=== PATIENT | female | born 1935 | race Caucasian/White ===

== ENCOUNTER → 2016-08-07 | Outpatient (CLI) | payer MEDICARE ==
--- NOTE | 2016-08-13 13:58 | EM ---
24 HOUR DCG DATE OF SERVICE: AGE: 81Y SEX: F INDICATIONS: Patient did not provide a diary. Predominant rhythm is sinus with a heart ranging from 80 to 122 beats per minute. The average heart rate is about 100 beats per minute. Rare isolated PVCs and PACs were noted. Sinus rhythm and sinus tachycardia appears to be the predominant rhythm. There was no evidence of any bradyarrhythmia. FINAL IMPRESSION: Predominately sinus with sinus arrhythmia, and sinus tachycardia. No evidence of any ventricular or supraventricular ectopy was noted. There was no bradyarrhythmia. No diary was provided. This is an unremarkable 24-hour DCG with sinus tachycardia.
== END | disposition home or self-care (01) ==
LOC: RADECHMAIN 12:04
PROVIDERS: ATTEND Physician Assistant
DX: I49.8 Other specified cardiac arrhythmias (principal); R00.0 Tachycardia, unspecified
CPT/HCPCS: 93225; 93226

== ENCOUNTER 2016-10-31 12:10 | Emergency (ER) | payer MEDICARE ==
[2016-10-31] MEDS ORDERED: SODIUM CHLORIDE 0.9% 1,000 ML IV STA (12:46)
--- NOTE | 2016-10-31 12:46 | ED ---
General Adult HPI - General Chief complaint: Urogenital Stated complaint: Dehydration Time Seen by Provider: 10/31/16 12:40 Source: patient, RN notes reviewed, old records reviewed Mode of arrival: ambulatory Limitations: no limitations - History of Present Illness Initial comments: This is an 79-year-old female to the ER with abdominal pain, dysuria, suprapubic abdominal pain. Back pain. Patient has history of proctitis history of recurrent urinary tract infections and some history of urinary retention. Patient does admit to feeling feverish with chills. No modifying factors for symptoms. Increased diarrhea, no blood. Decreased urination. Decreased appetite. Mild nausea no vomiting. No fevers or family history no sick contacts. No recent change in medications - Related Data Home Medications Medication Instructions Recorded Confirmed Albuterol Sulfate [Proair Hfa] 1 - 2 puff INHALATION RT-Q6H PRN 10/31/16 Budesonide/Formoterol Fumarate 1 puff INHALATION RT-DAILY 10/31/16 10/31/16 [Symbicort 80-4.5 Mcg Inhaler] Calcium Carbonate/Vitamin D3 1 tab PO DAILY 10/31/16 10/31/16 [Calcium 500-Vit D3 200 Tablet] Ezetimibe [Zetia] 10 mg PO HS 10/31/16 10/31/16 Levothyroxine Sodium [Synthroid] 25 mcg PO DAILY 10/31/16 10/31/16 Losartan/Hydrochlorothiazide 1 tab PO DAILY 10/31/16 10/31/16 [Losartan-Hctz 100-12.5 mg Tab] Multivitamins, Thera [Multivitamin 1 tab PO DAILY 10/31/16 10/31/16 (formulary)] Previous Rx's Medication Instructions Recorded Dicyclomine [Bentyl] 10 mg PO TID #30 capsule 10/31/16 HYDROcodone/APAP 5-325MG [[place] 1 tab PO Q6HR PRN #20 tab 10/31/16 5-325] Naproxen [Naprosyn] 250 mg PO BID #30 tab 10/31/16 Ondansetron [Zofran] 4 mg PO Q8HR PRN #30 tab 10/31/16 Allergies Allergy/AdvReac Type Severity Reaction Status Date / Time hydromorphone [From Dilaudid] AdvReac Nausea & Verified 10/31/16 14:00 Vomiting Review of Systems ROS Statement: Those systems with pertinent positive or pertinent negative responses have been documented in the HPI. ROS Other: All systems not noted in ROS Statement are negative. Past Medical History Additional Past Medical History / Comment(s): chronic proctitis. chronic diarrhea History of Any Multi-Drug Resistant Organisms: None Reported Past Surgical History: Hysterectomy, Orthopedic Surgery, Tubal Ligation Additional Past Surgical History / Comment(s): cataract Past Psychological History: No Psychological Hx Reported Smoking Status: Never smoker Past Alcohol Use History: None Reported Past Drug Use History: None Reported General Exam Limitations: no limitations General appearance: alert, in no apparent distress Head exam: Present: atraumatic, normocephalic, normal inspection Eye exam: Present: normal appearance, PERRL, EOMI. Absent: scleral icterus, conjunctival injection, periorbital swelling ENT exam: Present: normal exam, mucous membranes moist Neck exam: Present: normal inspection. Absent: tenderness, meningismus, lymphadenopathy Respiratory exam: Present: normal lung sounds bilaterally. Absent: respiratory distress, wheezes, rales, rhonchi, stridor Cardiovascular Exam: Present: regular rate, normal rhythm, normal heart sounds. Absent: systolic murmur, diastolic murmur, rubs, gallop, clicks GI/Abdominal exam: Present: soft, normal bowel sounds. Absent: distended, tenderness, guarding, rebound, rigid Extremities exam: Present: normal inspection, full ROM, normal capillary refill. Absent: tenderness, pedal edema, joint swelling, calf tenderness Back exam: Present: normal inspection Neurological exam: Present: alert, oriented X3, CN II-XII intact Psychiatric exam: Present: normal affect, normal mood Skin exam: Present: warm, dry, intact, normal color. Absent: rash Course Vital Signs 10/31/16 10/31/16 10/31/16 12:31 13:21 13:51 Temperature 100 F H 100.6 F H Pulse Rate 104 H 104 H 103 H Respiratory 18 16 16 Rate Blood Pressure 128/59 131/60 127/60 O2 Sat by Pulse 98 99 93 L Oximetry 10/31/16 10/31/16 14:20 15:00 Temperature 100.0 F H 98.8 F Pulse Rate 99 92 Respiratory 16 16 Rate Blood Pressure 116/56 O2 Sat by Pulse 100 Oximetry - Reevaluation(s) Reevaluation #1: 10/31/16 16:33 Patient has great improvement in symptoms with fever control, IV fluid resuscitation, denies nausea, does have appetite EKG Findings - EKG Comments: EKG Findings:: EKG shows rate of 101, IN 124, QRS 80, QTC 417 sinus tach Medical Decision Making - Medical Decision Making HEENT female with rectal pain history of proctitis, patient is inflammation extending up to descending colon, noted for inpatient admission, patient tolerating oral intake, we'll give pain control follow-up with specialist as directed - Lab Data Result diagrams: 10/31/16 13:10 10/31/16 13:10 Lab Results 10/31/16 10/31/16 10/31/16 Range/Units 12:45 13:10 13:10 WBC 10.7 H (3.8-10.6) k/uL RBC 4.37 (3.80-5.40) m/uL Hgb 11.8 (11.4-16.0) gm/dL Hct 36.7 (34.0-46.0) % MCV 84.1 (80.0-100.0) fL MCH 27.0 (25.0-35.0) pg MCHC 32.1 (31.0-37.0) g/dL RDW 13.4 (11.5-15.5) % Plt Count 446 (150-450) k/uL Neutrophils % 76 % Lymphocytes % 17 % Monocytes % 4 % Eosinophils % 1 % Basophils % 0 % Neutrophils # 8.2 H (1.3-7.7) k/uL Lymphocytes # 1.8 (1.0-4.8) k/uL Monocytes # 0.4 (0-1.0) k/uL Eosinophils # 0.2 (0-0.7) k/uL Basophils # 0.0 (0-0.2) k/uL PT (9.0-12.0) sec INR (<1.2) APTT (22.0-30.0) sec Sodium (137-145) mmol/L Potassium (3.5-5.1) mmol/L Chloride (98-107) mmol/L Carbon Dioxide (22-30) mmol/L Anion Gap mmol/L BUN (7-17) mg/dL Creatinine (0.52-1.04) mg/dL Est GFR (MDRD) Af Amer (>60 ml/min/1.73 sqM) Est GFR (MDRD) Non-Af (>60 ml/min/1.73 sqM) Glucose (74-99) mg/dL Calcium (8.4-10.2) mg/dL Phosphorus (2.5-4.5) mg/dL Magnesium (1.6-2.3) mg/dL Total Bilirubin (0.2-1.3) mg/dL AST (14-36) U/L ALT (9-52) U/L Alkaline Phosphatase (38-126) U/L Total Creatine Kinase 26 L (30-135) U/L CK-MB (CK-2) 0.4 (0.0-2.4) ng/mL CK-MB (CK-2) Rel Index 1.5 Troponin I <0.012 (0.000-0.034) ng/mL Total Protein (6.3-8.2) g/dL Albumin (3.5-5.0) g/dL Urine Color Yellow Urine Appearance Clear (Clear) Urine pH 6.5 (5.0-8.0) Ur Specific [place] 1.009 (1.001-1.035) Urine Protein Trace H (Negative) Urine Glucose (UA) Negative (Negative) Urine Ketones Negative (Negative) Urine Blood Trace H (Negative) Urine Nitrite Negative (Negative) Urine Bilirubin Negative (Negative) Urine Urobilinogen <2.0 (<2.0) mg/dL Ur Leukocyte Esterase Moderate H (Negative) Urine RBC 1 (0-5) /hpf Urine WBC 2 (0-5) /hpf Ur Squamous Epith Cells 6 H (0-4) /hpf Urine Bacteria Rare H (None) /hpf Urine Mucus Rare H (None) /hpf 10/31/16 10/31/16 Range/Units 13:10 13:10 WBC (3.8-10.6) k/uL RBC (3.80-5.40) m/uL Hgb (11.4-16.0) gm/dL Hct (34.0-46.0) % MCV (80.0-100.0) fL MCH (25.0-35.0) pg MCHC (31.0-37.0) g/dL RDW (11.5-15.5) % Plt Count (150-450) k/uL Neutrophils % % Lymphocytes % % Monocytes % % Eosinophils % % Basophils % % Neutrophils # (1.3-7.7) k/uL Lymphocytes # (1.0-4.8) k/uL Monocytes # (0-1.0) k/uL Eosinophils # (0-0.7) k/uL Basophils # (0-0.2) k/uL PT 11.4 (9.0-12.0) sec INR 1.1 (<1.2) APTT 24.5 (22.0-30.0) sec Sodium 132 L (137-145) mmol/L Potassium 4.3 (3.5-5.1) mmol/L Chloride 97 L (98-107) mmol/L Carbon Dioxide 27 (22-30) mmol/L Anion Gap 8 mmol/L BUN 19 H (7-17) mg/dL Creatinine 0.89 (0.52-1.04) mg/dL Est GFR (MDRD) Af Amer >60 (>60 ml/min/1.73 sqM) Est GFR (MDRD) Non-Af >60 (>60 ml/min/1.73 sqM) Glucose 91 (74-99) mg/dL Calcium 8.8 (8.4-10.2) mg/dL Phosphorus 3.0 (2.5-4.5) mg/dL Magnesium 1.5 L (1.6-2.3) mg/dL Total Bilirubin 0.5 (0.2-1.3) mg/dL AST 13 L (14-36) U/L ALT 30 (9-52) U/L Alkaline Phosphatase 109 (38-126) U/L Total Creatine Kinase (30-135) U/L CK-MB (CK-2) (0.0-2.4) ng/mL CK-MB (CK-2) Rel Index Troponin I (0.000-0.034) ng/mL Total Protein 5.9 L (6.3-8.2) g/dL Albumin 2.7 L (3.5-5.0) g/dL Urine Color Urine Appearance (Clear) Urine pH (5.0-8.0) Ur Specific [place] (1.001-1.035) Urine Protein (Negative) Urine Glucose (UA) (Negative) Urine Ketones (Negative) Urine Blood (Negative) Urine Nitrite (Negative) Urine Bilirubin (Negative) Urine Urobilinogen (<2.0) mg/dL Ur Leukocyte Esterase (Negative) Urine RBC (0-5) /hpf Urine WBC (0-5) /hpf Ur Squamous Epith Cells (0-4) /hpf Urine Bacteria (None) /hpf Urine Mucus (None) /hpf - Radiology Data Radiology results: report reviewed (CT and pelvis that showed colitis to rectum up to ascending and descending colon), image reviewed Disposition Clinical Impression: Colitis Disposition: HOME SELF-CARE Condition: Good Instructions: Colitis (ED) Prescriptions: Dicyclomine [Bentyl] 10 mg PO TID #30 capsule HYDROcodone/APAP 5-325MG [[place] 5-325] 1 tab PO Q6HR PRN #20 tab PRN Reason: Pain Naproxen [Naprosyn] 250 mg PO BID #30 tab Ondansetron [Zofran] 4 mg PO Q8HR PRN #30 tab PRN Reason: Nausea Referrals: Jacky Maynard DO [Primary Care Provider] - 1-2 days
[2016-10-31] MEDS ORDERED: ACETAMINOPHEN IV (For NPO) 1,000 MG in EMPTY BAG 1 BAG IVPB STA (12:56)
[2016-10-31 13:23] VITALS: RESP 16
[2016-10-31 13:27] LABS: Basophils % (A) 0 %; CH 26.8; Eosinophils # (A) 0.2 k/uL (0-0.7); Eosinophils % (A) 1 %; HCT 36.7 % (34.0-46.0); HDW 2.47; HGB 11.8 gm/dL (11.4-16.0); Luc # (Auto) 0.18; Luc % (Auto) 2; Lymphocytes # (A) 1.8 k/uL (1.0-4.8); Lymphocytes % (A) 17 %; MCHC 32.1 g/dL (31.0-37.0); MCV 84.1 fL (80.0-100.0); Mean Platelet Volume 6.7; Monocytes # (A) 0.4 k/uL (0-1.0); Monocytes % (A) 4 %; Neutrophils # (A) 8.2 k/uL (1.3-7.7); Neutrophils % (A) 76 %; RBC 4.37 m/uL (3.80-5.40); RDW 13.4 % (11.5-15.5); WBC 10.7 k/uL (3.8-10.6)
[2016-10-31 13:37] LABS: ALT 30 U/L (9-52); AST 13 U/L (14-36); Alkaline Phosphatase 109 U/L (38-126); Anion Gap 8 mmol/L; Blood Urea Nitrogen 19 mg/dL (7-17); Calcium 8.8 mg/dL (8.4-10.2); Carbon Dioxide 27 mmol/L (22-30); Chloride 97 mmol/L (98-107); Glucose 91 mg/dL (74-99); INR 1.1 (<1.2); Magnesium 1.5 mg/dL (1.6-2.3); Non-African American GFR(MDRD) >60 (>60 ml/min/1.73 sqM); Partial Thromboplastin Time 24.5 sec (22.0-30.0); Potassium 4.3 mmol/L (3.5-5.1); Prothrombin Time 11.4 sec (9.0-12.0); Sodium 132 mmol/L (137-145); Total Bilirubin 0.5 mg/dL (0.2-1.3); Total Protein 5.9 g/dL (6.3-8.2)
[2016-10-31 13:41] LABS: Appearance,Urine Clear (Clear); Bacteria,Urine Rare /hpf; Bilirubin,Urine Negative (Negative); Glucose,Urine (UA) Negative (Negative); Ketones,Urine Negative (Negative); Leukocyte Esterase,Urine Moderate (Negative); Mucus,Urine Rare /hpf; Nitrite,Urine Negative (Negative); PH, Urine 6.5 (5.0-8.0); Particle Count 2704; Protein,Urine Trace (Negative); RBC,Urine 1 /hpf (0-5); Specific Gravity,Urine 1.009 (1.001-1.035); Squamous Epithelial Cell,Urine 6 /hpf (0-4); UA Billing (MACRO vs. MICRO) MICRO; Urobilinogen,Urine <2.0 mg/dL (<2.0); WBC,Urine 2 /hpf (0-5)
[2016-10-31 13:46] LABS: Creatine Kinase 26 U/L (30-135)
[2016-10-31 13:59] LABS: Creatine Kinase MB 0.4 ng/mL (0.0-2.4); Troponin I <0.012 ng/mL (0.000-0.034)
[2016-10-31] MEDS ORDERED: RX INFO: IV CONTRAST WAS GIVEN 1 EACH MISC MISCELLANE PRN (14:18)
[2016-10-31] MEDS ORDERED: KETOROLAC 30 MG/ML 1 ML VIAL IVP STA (14:18)
[2016-10-31] MEDS ORDERED: AMPICILLIN-SULBACTAM 3 GM in SODIUM CHLORIDE 0.9% 100 ML IVPB STA (14:19)
[2016-10-31 15:22] VITALS: PULSE 92
--- NOTE | 2016-10-31 16:18 | CT ---
EXAMINATION TYPE: CT abdomen pelvis w con DATE OF EXAM: 10/31/2016 COMPARISON: NONE HISTORY: 81-year-old female with generalized pain with history of proctitis per patient TECHNIQUE: Contiguous axial scanning of the abdomen and pelvis following administration of 100 ml Omn ipaque 300 IV contrast. Delayed images through the kidneys and coronal/sagittal reconstructions perf ormed. CT DLP: 445.9 mGycm Automated exposure control for dose reduction was used. FINDINGS: Heart is upper limits of normal in size without pericardial effusion. Strandy atelectasis/scarring in the lower lungs. No pleural effusion. There is hypodensity along the anterior right hepatic lobe without any discrete mass. Possible scarri ng. No significant biliary ductal dilatation. Gallbladder, adrenal glands, spleen with calcified granulomas, and mildly atrophic pancreas show no g ross abnormality. The kidneys show cortical thinning suggesting underlying chronic medical renal dise ase. Calcified granulomas within the spleen. There appears to be mild circumferential thickening within the gastric fundus and proximal body, poss ible gastritis. No dilated small bowel, free fluid, or free air. Some prominent fluid filled small bowel loops are pr esent in the lower abdomen. Normal appendix. There is moderate wall thickening of the colon beginning from the mid transverse colon to the rectum. Mild pericolonic inflammatory change. A few scattered prominent mesenteric lymph nodes are borderline to mildly enlarged measuring up to 7 mm, likely reactive/post inflammatory. There is presacral edema. Bladder is urine distended. Uterus surgically absent. Bones: Mild degenerative changes at the hips. Multilevel degenerative changes in the lumbar spine. No osseous destructive process. IMPRESSION: MODERATE TO SEVERE INFECTIOUS OR INFLAMMATORY COLITIS FROM THE MID TRANSVERSE COLON DOWN TO THE RECTU M. NO ABSCESS OR FREE AIR.
[2016-10-31 17:04] VITALS: BP 117/56; TEMP 97.6
== END 2016-10-31 17:00 | disposition home or self-care (01) ==
LOC: EC 12:10
DX: K52.9 Noninfective gastroenteritis and colitis, unspecified (principal); Z88.5 Allergy status to narcotic agent; Z79.51 Long term (current) use of inhaled steroids; Z79.899 Other long term (current) drug therapy
CPT/HCPCS: 99285; 96365; 96375 ×2; 51798; 36415; 93005; 80053; 82550; 82553; 83735; 84100; 84484; 85025; 85610; 85730; 81001; 87040; 87086; 74177; J1885; J0295; J0131

== ENCOUNTER → 2018-03-17 | Outpatient (CLI) | payer MEDICARE ==
--- NOTE | 2018-03-18 11:11 | MM ---
Reason for exam: screening (asymptomatic). Last mammogram was performed 1 year ago. History: Patient is postmenopausal. Took estrogen for 13 years beginning at age 53. Physical Findings: A clinical breast exam by your physician is recommended on an annual basis and results should be correlated with mammographic findings. MG 3D Screening Mammo W/Cad Bilateral CC and MLO view(s) were taken. Prior study comparison: March 16, 2017, bilateral MG screening mammo w CAD. February 07, 2016, bilateral MG screening mammo w CAD. The breast tissue is heterogeneously dense. This may lower the sensitivity of mammography. Finding: There is an equal density (isodense), indistinct lobulated mass located 4 cm from the nipple in the upper outer quadrant, middle position of the right breast. New finding since March 16, 2017 and February 07, 2016. ASSESSMENT: Incomplete: need additional imaging evaluation, BI-RAD 0 RECOMMENDATION: Special view mammogram of the right breast. If lesion persists on supplemental views, image directed ultrasound is recommended. [facility] will attempt to contact patient to return for supplemental views and ultrasound if indicated.
== END ==
LOC: RADMAMWWP 13:16
PROVIDERS: ATTEND Family Medicine
DX: Z12.31 Encounter for screening mammogram for malignant neoplasm of breast (principal)
CPT/HCPCS: 77063; 77067

== ENCOUNTER → 2018-03-23 | Outpatient (CLI) | payer MEDICARE ==
--- NOTE | 2018-03-23 09:53 | MM ---
Reason for exam: additional evaluation requested from abnormal screening. Last mammogram was performed less than 1 month ago. History: Patient is postmenopausal. Took estrogen for 13 years beginning at age 53. Physical Findings: Nurse did not find any significant physical abnormalities on exam. MG 3D Work Up W/Cad RT Spot compression CC and LM view(s) were taken of the right breast. Prior study comparison: March 17, 2018, bilateral MG 3d screening mammo w/cad. March 16, 2017, bilateral MG screening mammo w CAD. The breast tissue is heterogeneously dense. This may lower the sensitivity of mammography. Benign calcifications in the right breast. No suspicious abnormality. The lateral asymmetry resolves on additional views and appears as fibroglandular tissue. These results were verbally communicated with the patient and result sheet given to the patient on 03/23/18. ASSESSMENT: Benign, BI-RAD 2 RECOMMENDATION: Return to routine screening mammogram schedule for both breasts.
== END | disposition home or self-care (01) ==
LOC: RADMAMWWP 08:59
PROVIDERS: ATTEND Family Medicine
DX: R92.8 Other abnormal and inconclusive findings on diagnostic imaging of breast (principal)
CPT/HCPCS: 77065; G0279; 77061

== ENCOUNTER → 2019-11-14 | Outpatient (CLI) | payer MEDICARE ==
--- NOTE | 2019-11-14 14:32 | MM ---
Reason for exam: screening (asymptomatic). Last mammogram was performed 1 year and 8 months ago. History: Patient is postmenopausal. Took estrogen for 13 years beginning at age 53. Physical Findings: A clinical breast exam by your physician is recommended on an annual basis and results should be correlated with mammographic findings. MG 3D Screening Mammo W/Cad Bilateral CC and MLO view(s) were taken. Prior study comparison: March 17, 2018, bilateral MG 3d screening mammo w/cad. March 16, 2017, bilateral MG screening mammo w CAD. The breast tissue is heterogeneously dense. This may lower the sensitivity of mammography. There are benign appearing round vascular calcifications bilaterally. There is no discrete abnormality. ASSESSMENT: Benign, BI-RAD 2 RECOMMENDATION: Routine screening mammogram of both breasts in 1 year.
== END | disposition home or self-care (01) ==
LOC: RADMAMWWP 11:15
PROVIDERS: ATTEND Family Medicine
DX: Z12.31 Encounter for screening mammogram for malignant neoplasm of breast (principal)
CPT/HCPCS: 77063; 77067

== ENCOUNTER → 2020-01-13 | Outpatient (CLI) | payer MEDICARE ==
--- NOTE | 2020-01-13 12:38 | MR ---
EXAMINATION TYPE: MR giovannyine/lspine wo con DATE OF EXAM: 01/13/2020 COMPARISON: CT 10/31/2016 HISTORY: Myelopathy, spinal stenosis, low back pain, leg weakness, ataxia TECHNIQUE: Multiplanar, multisequence imaging of the cervical and lumbar spine is performed without I V contrast. FINDINGS: Cervical spine MRI: Findings: There is multilevel spondylosis. Loss of disc height signal is present at C3-4, C4-5, C5-6 and C6-7, there is endplate discogenic marrow signal change. Cervical cord signal is normal. Cervical vertebral bodies show near anatomic alignment, there is preserved height. Additional note made of so me sinus disease in the maxillary sinuses. C2-3: No evident spinal stenosis. Minimal posterior disc bulge causes only slight anterior mass effec t on the thecal sac. Uncovertebral joint hypertrophy contributes to cause some left-sided foraminal e ncroachment. C3-4: Posterior extension endplate disc complex causes anterior mass effect on the thecal sac, small central posterior disc herniation may contact the anterior cervical cord. No significant spinal steno sis. There is bilateral foraminal encroachment due to uncovertebral joint hypertrophy and facet arthr opathy. C4-5: There is some left greater than right foraminal encroachment. Posterior extension endplate disc complex causes anterior mass effect on the thecal sac, only mild spinal stenosis. C5-6: Posterior extension endplate disc complex results in anterior mass effect on the thecal sac. Th ere is bilateral foraminal encroachment. Mild spinal stenosis. C6-7: Posterior extension endplate disc complex is somewhat eccentric towards the left, there is bila teral foraminal encroachment. Mild anterior mass effect on the thecal sac. No significant stenosis. C7-T1: There is no evident spinal stenosis or foraminal encroachment. Minimal posterior disc bulge ca uses only slight anterior mass effect on the thecal sac. IMPRESSION: Degenerative disc disease, multilevel foraminal encroachment. Sinus disease. Lumbar spine MRI: Sagittal images of the lumbar spine show vertebral body heights to to be maintained . There is an anterolisthesis grade 1 at L4-5, retrolisthesis grade 1 L5-S1, L3-4, L2-3 and L1 to. Th ere is multilevel spondylosis with endplate discogenic marrow signal change. Intervertebral levels sh ow vacuum phenomenon with loss of disc height signal consistent with degenerative disc disease. The c onus is at L1 shows an unremarkable appearance. There is no significant spinal stenosis. Serpiginous low signal foci in the left upper quadrant could represent varices at the level of the gastric cardia . Possible extrarenal pelvis, pelvic caliectasis within the left kidney, likely chronic L5-S1: There is a posterior broad-based disc bulge causing anterior mass effect on the thecal sac. Th e disc bulge somewhat eccentric towards the left, there may be contact with the proximal left S1 nerv e root. Lateral extension endplate disc complex results in foraminal encroachment greater on the left than on the right. There is associated facet arthropathy change. Virtually the ligamentum flavum cau ses posterior lateral mass effect on the thecal sac. L4-5: Circumferential extension of endplate disc complex combined with the listhesis results in bilat eral foraminal encroachment. Facet arthropathy with hypertrophy of ligamentum flavum causes posterior lateral mass effect on the thecal sac, there is a trefoil appearance of the thecal sac. L3-4: Posterior extension of endplate disc complex causes anterior mass effect on the thecal sac. Fac et arthropathy with hypertrophy ligamentum flavum causes posterior lateral mass effect on the thecal sac resulting in a trefoil appearance. There is bilateral foraminal encroachment due to lateral exten beatris endplate disc complex L2-3: Posterior extension endplate disc complex causes mild anterior mass effect on the thecal sac. F acet arthropathy with hypertrophy ligamentum flavum causes posterior lateral mass effect on the theca l sac. Circumferential extension endplate disc complex encroaches on the neural foramina. L1-2: Posterior extension endplate disc complex results in anterior mass effect on the thecal sac. Ci rcumferential extension endplate disc complex results in bilateral foraminal encroachment. IMPRESSION: Degenerative disc disease, facet arthropathy, multilevel foraminal encroachment. Addition al findings above.
== END | disposition home or self-care (01) ==
LOC: RADMRIMAIN 09:39
PROVIDERS: ATTEND Psychiatry & Neurology Neurology
DX: M50.30 Other cervical disc degeneration, unspecified cervical region (principal); M51.36 Other intervertebral disc degeneration, lumbar region; M46.96 Unspecified inflammatory spondylopathy, lumbar region; M46.97 Unspecified inflammatory spondylopathy, lumbosacral region
CPT/HCPCS: 72141; 72148

== ENCOUNTER → 2020-01-19 | Outpatient (CLI) | payer MEDICARE ==
--- NOTE | 2020-01-19 20:23 | BD ---
EXAMINATION TYPE: Axial Bone Density DATE OF EXAM: 01/19/2020 COMPARISON: 09.13.2008 CLINICAL HISTORY: 84 YR OLD FEMALE....ICD-0 CODE: Z13.820 OSTEOPOROSIS SCREENING Height: 62 Weight: 145 FRAX RISK QUESTIONS: Family History (Parent hip fracture): YES RISK FACTORS HISTORY OF: Family History of Osteoporosis: YES, SISTER AND MOTHER WITH HIP FX Postmenopausal woman: YES, AT ABOUT AGE 47 Take estrogen and/or progesterone medications: YES, ESTROGEN PATCH FOR ABOUT 15 YRS Lost more than 2 inches in height since high school: YES Frequent falls: USING CANE, UNSTEADY Hyperparathyroidism: NO Adrenal Insufficiency: NO MEDICATIONS: Thyroid Medications: YES, SYNTHROID FOR ABOUT 10 YRS Additional Medications: BP MEDS, CHOLESTEROL MEDS IN PAST, REFLUX MEDS IN THE PAST, CALCIUM AND VIT D Additional History: COLOSTOMY BAG, USES CANE, ARTHRITIS, EXAM MEASUREMENTS: Bone mineral densitometry was performed using the [employer] System. Bone mineral density as measured about the Lumbar spine is: ----- L1-L4(G/cm2): 1.261 T Score Values are as follows: ----- L1: 1.1 ----- L2: 1.4 ----- L3: 0.0 ----- L4: 0.3 ----- L1-L4: 0.7 Bone mineral density has: Increased 15.8% since study of: 09.13.2008 Bone mineral density about the R hip (g/cm2): 0.760 Bone mineral density about the L hip (g/cm2): 0.754 T Score values are as follows: -----R Neck: -1.3 -----L Neck: -2.0 -----R Total: -2.0 -----L Total: -2.0 Bone mineral density has: Decreased -15.7% since study of: 09.13.2008 FRAX%s: THERE IS A 30.2% CHANCE FOR A MAJOR OSTEOPOROTIC FX AND A 20.3% FOR HIP......PROBABILITY FO R FX IN 10 YRS TIME IMPRESSION: Osteopenia (T Score between -2.5 and -1). There is slightly increased risk of fracture and the patient may be considered for treatment. Re-Screen 2-5 years. NOTE: T-SCORE=SD OF THE YOUNG ADULT MEAN.
== END | disposition home or self-care (01) ==
LOC: RADBDWWP 10:22
PROVIDERS: ATTEND Family Medicine
DX: M85.80 Other specified disorders of bone density and structure, unspecified site (principal)
CPT/HCPCS: 77080

== ENCOUNTER → 2020-02-14 | Outpatient (CLI) | payer MEDICARE ==
--- NOTE | 2020-02-14 16:34 | MR ---
MR brain without contrast HISTORY: Z 86.73 Multiplanar multisequence imaging through the brain No comparisons There is no restricted diffusion. Periventricular, pericallosal, subcortical hyperintensities are pre sent on inversion recovery T2-weighted sequences, areas of confluent and scattered lesions are presen t, 40-50 lesions are present. Cortical atrophy is present. Mucosal thickening is present in the bilat eral maxillary sinuses, sphenoid sinus and ethmoid air cells. Orbits show symmetric appearance. Corpu s callosum, pituitary, cervical medullary junction, cerebellopontine angles are normal. There is a pa rtially empty sella. There is no hemorrhage or hydrocephalus. Orbits show symmetric appearance. IMPRESSION: Age-related changes of atrophy and probable chronic small vessel ischemia. Sinus disease.
== END | disposition home or self-care (01) ==
LOC: RADMRIMAIN 12:33
PROVIDERS: ATTEND Psychiatry & Neurology Neurology
DX: G31.1 Senile degeneration of brain, not elsewhere classified (principal); I63.9 Cerebral infarction, unspecified; Z86.73 Personal history of transient ischemic attack (TIA), and cerebral infarction without residual deficits
CPT/HCPCS: 70551

== ENCOUNTER → 2020-04-17 | Outpatient (CLI) | payer MEDICARE ==
[~2020-04-17] MED LIST: SODIUM CHLORIDE 0.9% 500 ML 500 ML in EMPTY BAG 1 BAG IV PRN; ZOLEDRONIC ACID 5 MG in SODIUM CHLORIDE 0.9% 100 ML IV NR
[2020-04-17 13:14] VITALS: BP 141/78; PULSE 70; RESP 16; TEMP 97.5
== END | disposition home or self-care (01) ==
LOC: PROCWHC3 12:33
PROVIDERS: ATTEND Physician Assistant
DX: M81.0 Age-related osteoporosis without current pathological fracture (principal)
CPT/HCPCS: 96365; J3489

== ENCOUNTER → 2020-12-21 | Outpatient (CLI) | payer MEDICARE ==
--- NOTE | 2020-12-25 08:12 | MM ---
Reason for exam: screening (asymptomatic). Last mammogram was performed 1 year and 1 month ago. History: Patient is postmenopausal. Took estrogen for 13 years beginning at age 53. Physical Findings: A clinical breast exam by your physician is recommended on an annual basis and results should be correlated with mammographic findings. MG Screening Mammo w CAD Bilateral CC and MLO view(s) were taken. Prior study comparison: November 14, 2019, bilateral MG 3d screening mammo w/cad. March 23, 2018, right breast MG 3d work up w/cad RT. March 17, 2018, bilateral MG 3d screening mammo w/cad. March 16, 2017, bilateral MG screening mammo w CAD. February 07, 2016, bilateral MG screening mammo w CAD. The breast tissue is heterogeneously dense. This may lower the sensitivity of mammography. Right CC outer asymmetric density is unchanged from 2016. A couple benign oil cyst calcifications. 12 o'clock focal asymmetry left breast is more defined as is a posterior lateral asymmetric density left CC view. ASSESSMENT: Incomplete: need additional imaging evaluation, BI-RAD 0 RECOMMENDATION: Special view mammogram of the left breast. (3D) If lesion persists on supplemental views, image directed ultrasound is recommended. [facility] will attempt to contact patient to return for supplemental views and ultrasound if indicated.
== END | disposition home or self-care (01) ==
LOC: RADMAMWWP 12:58
PROVIDERS: ATTEND Family Medicine
DX: Z12.31 Encounter for screening mammogram for malignant neoplasm of breast (principal); Z78.0 Asymptomatic menopausal state; Z79.818 Long term (current) use of other agents affecting estrogen receptors and estrogen levels
CPT/HCPCS: 77067

== ENCOUNTER → 2021-01-03 | Outpatient (CLI) | payer MEDICARE ==
--- NOTE | 2021-01-04 11:06 | MM ---
Reason for exam: additional evaluation requested from abnormal screening. Last mammogram was performed less than 1 month ago. History: Patient is postmenopausal. Took estrogen for 13 years beginning at age 53. Physical Findings: Nurse did not find any significant physical abnormalities on exam. MG 3D Work Up W/Cad LT Spot compression CC, spot compression MLO, and LM view(s) were taken of the left breast. Prior study comparison: December 21, 2020, bilateral MG screening mammo w CAD. November 14, 2019, bilateral MG 3d screening mammo w/cad. The breast tissue is heterogeneously dense. This may lower the sensitivity of mammography. Left upper outer quadrant focal asymmetry appears to disperse on additional views. Precautionary 6 month follow up recommended. These results were verbally communicated with the patient and result sheet given to the patient on 01/03/21. ASSESSMENT: Probably benign, BI-RAD 3 RECOMMENDATION: Follow-up diagnostic mammogram of the left breast in 6 months.
== END | disposition home or self-care (01) ==
LOC: RADMAMWWP 13:44
PROVIDERS: ATTEND Family Medicine
DX: N64.89 Other specified disorders of breast (principal); Z78.0 Asymptomatic menopausal state
CPT/HCPCS: 77065; G0279; 77061

== ENCOUNTER → 2022-02-06 | Outpatient (CLI) | payer MEDICARE ==
--- NOTE | 2022-02-07 08:18 | MM ---
Reason for Exam: Screening (asymptomatic). Last mammogram was performed 1 year(s) and 2 month(s) ago. Patient History: Menarche at age 12. First Full-Term at age 24. Left ovary removed at age 53. Right ovary removed at age 53. Hysterectomy at age 53. Postmenopausal. Estrogen for 13 years from age 53 until age 66. Prior Study Comparison: 11/14/2019 Bilateral Screening Mammogram, [facility]. 12/21/2020 Bilateral Screening Mammogram, [facility]. 01/03/2021 Left Diagnostic Mammogram, [facility]. Tissue Density: The breast tissue is heterogeneously dense. This may lower the sensitivity of mammography. Findings: Analyzed By CAD. There is no suspicious group of microcalcifications or new suspicious mass in either breast. Overall Assessment: Benign, BI-RAD 2 Management: Screening Mammogram of both breasts in 1 year. A clinical breast exam by your physician is recommended on an annual basis and results should be correlated with mammographic findings. Electronically signed and approved by: Jero Burgos M.D. Radiologis
== END | disposition home or self-care (01) ==
LOC: RADMAMWWP 13:16
PROVIDERS: ATTEND Family Medicine
DX: Z12.31 Encounter for screening mammogram for malignant neoplasm of breast (principal); Z78.0 Asymptomatic menopausal state
CPT/HCPCS: 77063; 77067

== ENCOUNTER 2023-05-11 14:55 | Emergency (ER) | payer MEDICARE ==
--- NOTE | 2023-05-11 14:59 | ED ---
Fall HPI - General Source: patient, RN notes reviewed Mode of arrival: ambulatory Limitations: no limitations - History of Present Illness MD Complaint: fall <Maritza Wiseman - Last Filed: 05/11/23 14:58> <Herbie Cline - Last Filed: 05/12/23 18:23> - General Chief Complaint: Fall Stated Complaint: Fall-Head Injury Time Seen by Provider: 05/11/23 14:58 - History of Present Illness Initial Comments: This is an 88-year-old female who presents to the emergency department for a fall. States that she fell getting out of bed this morning and hit the back of her head on a windowsill. She is not taking any blood thinners and denies any loss of consciousness. (Maritza Wiseman) Dictation was produced using [employer] dictation software. please excuse any grammatical, word or spelling errors. Chief Complaint: 88-year-old female presents to the ER for scalp laceration History of Present Illness: Patient is 88-year-old female she was reaching for her walker out of her bed when she missed she fell and struck the top of her head on the window frame. Patient suffered laceration daughter states she noticed a lot of blood. Did wash it with tap water initially. They contacted primary care doctor who instructed him to come to the ER. Patient does not take any anticoagulation medications. Patient denies any headache. No vision changes. No loss of consciousness. Incident occurred at 8 AM this morning. The ROS documented in this emergency department record has been reviewed and confirmed by me. Those systems with pertinent positive or negative responses have been documented in the HPI. All other systems are other negative and/or noncontributory. (Herbie Cline) - Related Data Home Medications Medication Instructions Recorded Confirmed Albuterol Sulfate [Proair Hfa] 1 - 2 puff INHALATION RT-Q6H PRN 10/31/16 10/31/16 Budesonide/Formoterol Fumarate 1 puff INHALATION RT-DAILY 10/31/16 10/31/16 [Symbicort 80-4.5 Mcg Inhaler] Calcium Carbonate/Vitamin D3 1 tab PO DAILY 10/31/16 10/31/16 [Calcium 500-Vit D3 200 Tablet] Ezetimibe [Zetia] 10 mg PO HS 10/31/16 10/31/16 Levothyroxine Sodium [Synthroid] 25 mcg PO DAILY 10/31/16 10/31/16 Losartan/Hydrochlorothiazide 1 tab PO DAILY 10/31/16 10/31/16 [Losartan-Hctz 100-12.5 mg Tab] Multivitamins, Thera [Multivitamin 1 tab PO DAILY 10/31/16 10/31/16 (formulary)] Previous Rx's Medication Instructions Recorded Dicyclomine [Bentyl] 10 mg PO TID #30 capsule 10/31/16 HYDROcodone/APAP 5-325MG [Randolph 1 tab PO Q6HR PRN #20 tab 10/31/16 5-325] Naproxen [Naprosyn] 250 mg PO BID #30 tab 10/31/16 Ondansetron [Zofran] 4 mg PO Q8HR PRN #30 tab 10/31/16 Allergies Allergy/AdvReac Type Severity Reaction Status Date / Time hydromorphone [From Dilaudid] AdvReac Nausea & Verified 05/11/23 15:58 Vomiting Review of Systems ROS Other: All systems not noted in ROS Statement are negative. <Maritza Wiseman - Last Filed: 05/11/23 14:58> ROS Other: All systems not noted in ROS Statement are negative. <Herbie Cline - Last Filed: 05/12/23 18:23> ROS Statement: Those systems with pertinent positive or pertinent negative responses have been documented in the HPI. Past Medical History Additional Past Medical History / Comment(s): chronic proctitis. chronic diarrhea History of Any Multi-Drug Resistant Organisms: None Reported Past Surgical History: Hysterectomy, Orthopedic Surgery, Tubal Ligation Additional Past Surgical History / Comment(s): cataract Smoking Status: Never smoker <Maritza Wiseman - Last Filed: 05/11/23 14:58> General Exam <Maritza Wiseman - Last Filed: 05/11/23 14:58> <Herbie Cline - Last Filed: 05/12/23 18:23> - General Exam Comments Initial Comments: Visual Physical Exam Vital signs reviewed General: Well-appearing, nontoxic, no acute distress. Head: Normocephalic, atraumatic Eyes: PERRLA, EOMI ENT: Airway patent Chest: Nonlabored breathing Skin: No visual rash, normal skin tone Neuro: Alert and oriented 3 Musculoskeletal: No gross abnormalities (Maritza Wiseman) PHYSICAL EXAM: General Impression: Alert and oriented x3, not in acute distress HEENT: 2 cm scalp laceration over the vertex of the head, extra-ocular movements intact, pupils equal and reactive to light bilaterally, mucous membranes moist. Cardiovascular: Heart regular rate and rhythm Chest: Able to complete full sentences, no retractions, no tachypnea Musculoskeletal: no peripheral edema Motor: no focal deficits noted Neurological: CN II-XII grossly intact, no focal motor or sensory deficits noted Skin: Intact with no visualized rashes Psych: Normal affect and mood (Herbie Cline) Course Vital Signs 05/11/23 05/11/23 15:52 16:53 Temperature 97.2 F L 98.2 F Pulse Rate 74 78 Respiratory 18 18 Rate Blood Pressure 162/83 132/78 O2 Sat by Pulse 98 98 Oximetry Procedures - Laceration Laceration #1 Consent Obtained: verbal consent Indication: laceration Site: scalp Description: linear Anesthetic Used: lidocaine 1% Pre-repair: wound explored Type of Sutures: other Size of Sutures: other (luan x4) Technique: other (luan) Patient Tolerated Procedure: well <Herbie Cline - Last Filed: 05/12/23 18:23> Medical Decision Making <Maritza Wiseman - Last Filed: 05/11/23 14:58> <Herbie Cline - Last Filed: 05/12/23 18:23> - Medical Decision Making I performed the QuickNote portion of this chart. Signed Maritza Wiseman PA-C. (Maritza Wiseman) Was pt. sent in by a medical professional or institution (EMMANUEL Vargas, CONCRETE SAW OPERATOR, urgent care, hospital, or group home...) When possible be specific @ -Primary care doctor Did you speak to anyone other than the patient for history (EMS, parent, family, police, friend...)? What history was obtained from this source @ -No Did you review nursing and triage notes (agree or disagree)? Why? @ -I reviewed and agree with nursing and triage notes Were old charts reviewed (outside hosp., previous admission, EMS record, old EKG, old radiological studies, urgent care reports/EKG's, group home records)? Report findings @ -No old charts were reviewed Differential Diagnosis (chest pain, altered mental status, abdominal pain women, abdominal pain men, vaginal bleeding, musculoskeletal, weakness, fever, dyspnea, syncope, headache, dizziness, GI bleed, back pain, seizure, CVA, palpatations, mental health)? @ -Not applicable EKG interpreted by me (3pts min.). @ -None done X-rays interpreted by me (1pt min.). @ -None done CT interpreted by me (1pt min.). @ -CT scan of the brain and C-spine shows no acute processes U/S interpreted by me (1pt. min.). @ -None done What testing was considered but not performed or refused? (CT, X-rays, U/S, labs)? Why? @ -None What meds were considered but not given or refused? Why? @ -None Did you discuss the management of the patient with other professionals (professionals i.e. , PA, CONCRETE SAW OPERATOR, lab, RT, psych nurse, social services manager, supervisor parachute manufacturing, teacher, disbursing officer, therapeutic case manager)? Give summary @ -No Was smoking cessation discussed for >3mins.? @ -No Was critical care preformed (if so, how long)? @ -No Were there social determinants of health that impacted care today? How? (Homelessness, low income, unemployed, alcoholism, drug addiction, transportation, low edu. Level, literacy, decrease access to med. care, skilled nursing, rehab)? @ -No Was there de-escalation of care discussed even if they declined (Discuss DNR or withdrawal of care, Hospice)? DNR status @ -No What co-morbidities impacted this encounter? (DM, HTN, Smoking, COPD, CAD, Cancer, CVA, ARF, Chemo, Hep., AIDS, mental health diagnosis, sleep apnea, morbid obesity)? @ -None Was patient admitted / discharged? Hospital course, mention meds given and route, prescriptions, significant lab abnormalities, going to OR and other pertinent info. @ -88-year-old female suffered scalp laceration. She is of elderly age and it was recommended that she come to the ER for imaging studies according to primary care doctor. Vital signs stable. Patient well-appearing. She has no high risk features. CT brain is negative. Laceration was repaired using luan. Daughter requested urinalysis for 3 to 4 days of urinary frequency. Undiagnosed new problem with uncertain prognosis? @ -No Drug Therapy requiring intensive monitoring for toxicity (Heparin, Nitro, Insulin, Cardizem)? @ -No Were any procedures done? @ -No Diagnosis/symptom? Acute, or Chronic, or Acute on Chronic? Uncomplicated (without systemic symptoms) or Complicated (systemic symptoms)? @ -Scalp laceration Side effects of treatment? @ -No Exacerbation, Progression, or Severe Exacerbation? @ -No Poses a threat to life or bodily function? How? (Chest pain, [place], [place], pneumonia, PE, COPD, DKA, ARF, appy, cholecystitis, CVA, Diverticulitis, Homicidal, Suicidal, threat to staff... and all critical care pts) @ -No (Herbie Cline) - Lab Data Lab Results 05/11/23 Range/Units 16:20 Urine Color Colorless Urine Appearance Clear (Clear) Urine pH 6.0 (5.0-8.0) Ur Specific [place] 1.005 (1.001-1.035) Urine Protein Negative (Negative) Urine Glucose (UA) Negative (Negative) Urine Ketones Negative (Negative) Urine Blood Negative (Negative) Urine Nitrite Negative (Negative) Urine Bilirubin Negative (Negative) Urine Urobilinogen <2.0 (<2.0) mg/dL Ur Leukocyte Esterase Negative (Negative) Disposition <Maritza Wiseman - Last Filed: 05/11/23 14:58> Is patient prescribed a controlled substance at d/c from ED?: No <Herbie Cline - Last Filed: 05/12/23 18:23> Clinical Impression: Laceration Disposition: HOME SELF-CARE Condition: Good Instructions (If sedation given, give patient instructions): [facility] (ED) Referrals: Jacky Maynard DO [Primary Care Provider] - 1-2 days
--- NOTE | 2023-05-11 15:56 | CT ---
EXAMINATION TYPE: CT brain desmond duran DATE OF EXAM: 05/11/2023 COMPARISON: None HISTORY: syncope, fall. head laceration on back of head CT DLP: 1276.[address] of the brain was performed. The ventricles, basal cisterns and sulci overlying the cerebral convexities demonstrate mild enlargem ent. There is no evidence for intracranial hemorrhage or sulcal effacement. There is decreased attenuatio n about the periventricular white matter and deep white matter of both cerebral hemispheres, compatib le with chronic small vessel ischemia. No mass effects are seen. If symptoms persist consider MRI. Osseous calvarium is intact. IMPRESSION: 1. Age related atrophic and chronic small vessel ischemic change without acute intracranial process seen at this time. CT Cervical Spine: Unenhanced CT of the cervical spine was performed with bone and soft tissue window settings submitted . Coronal and sagittal reconstruction is obtained. There is normal alignment and prevertebral soft tissues. No evidence for acute cervical fracture . Scattered degenerative disc disease and spondylosis. Biapical scarring. IMPRESSION: 1. No evidence for acute fracture or subluxation of the cervical spine.
[2023-05-11 16:05] VITALS: RESP 18
[2023-05-11] MEDS: LIDOCAINE 2%-EPI 1:100,000 20 ML VIAL SQ STA (16:11)
[2023-05-11] MEDS: LIDOCAINE 1% INJ 10MG/ML (20 ML MDV) SQ ONE (16:11)
[2023-05-11 16:39] LABS: Appearance,Urine Clear (Clear); Bilirubin,Urine Negative (Negative); Blood,Urine Negative (Negative); Color,Urine Colorless; Glucose,Urine (UA) Negative (Negative); Ketones,Urine Negative (Negative); Leukocyte Esterase,Urine Negative (Negative); Nitrite,Urine Negative (Negative); Protein,Urine Negative (Negative); Specific Gravity,Urine 1.005 (1.001-1.035); Urobilinogen,Urine <2.0 mg/dL (<2.0)
[2023-05-11 16:59] VITALS: BP 132/78; PULSE 78; TEMP 98.2
== END 2023-05-11 16:53 | disposition home or self-care (01) ==
LOC: EC 14:55
DX: S01.01XA Laceration without foreign body of scalp, initial encounter (principal); Z88.5 Allergy status to narcotic agent; W06.XXXA Fall from bed, initial encounter
CPT/HCPCS: 99284 ×2; 12001 ×2; 81003; 72125; 70450; J2001